=== PATIENT | female | born 1980 | race Caucasian/White ===

== ENCOUNTER 2017-08-13 16:58 | Emergency (ER) | payer OTHER ==
[2017-08-13 17:48] LABS: BASO # 0.1 K/uL (0.0-0.2); BASO % 0.8 % (0.0-2.0); HEMOGLOBIN 15.2 g/dL (11.0-16.0); LYMPH # 2.3 K/uL (1.0-4.3); LYMPH % 15.1 % (20.0-40.0); MEAN CELL VOLUME 96.2 fL (81.0-99.0); MEAN CORPUSCULAR HEMOGLOBIN 32.4 pg (27.0-31.0); MEAN CORPUSCULAR HGB CONC 33.7 g/dL (33.0-37.0); MEAN PLATELET VOLUME 8.4 fL (7.2-11.7); MONO # 1.5 K/uL (0.0-0.8); MONO % 9.5 % (0.0-10.0); NEUT # 11.6 K/uL (1.8-7.0); NEUT % 74.6 % (50.0-75.0); RBC 4.7 Mil/uL (3.80-5.20); RED CELL DISTRIBUTION WIDTH 13.8 % (11.5-14.5); WHITE BLOOD COUNT 15.5 K/uL (4.8-10.8)
[2017-08-13 17:54] LABS: HCG,QUALITATIVE URINE NEGATIVE (NEGATIVE)
--- NOTE | 2017-08-13 17:57 | C.PDOC ---
36-year-old female, presents to the emergency department with complaints of urinary urgency, and dysuria over the past few days. Patient states she is currently taking Amoxicillin and Methylprednisone for bronchitis. She denies any nausea/vomiting, vaginal bleeding, discharge, back pain or any other associated symptoms. No other complaints at this time. (Shonda Pena) History Per: Patient History/Exam Limitations: no limitations Onset/Duration Of Symptoms: Days Current Symptoms Are (Timing): Still Present Severity: Moderate <JeanShonda L - Last Filed: 08/13/17 18:46> <MichelleChristopher - Last Filed: 08/14/17 13:56> Time Seen by Provider: 08/13/17 17:17 Chief Complaint (Nursing): Abdominal Pain Past Medical History Reviewed: Historical Data, Nursing Documentation, Vital Signs - Medical History PMH: Asthma Surgical History: Tonsillectomy Family History: States: No Known Family Hx - Social History Hx Tobacco Use: Yes Hx Alcohol Use: No Hx Substance Use: No - Immunization History Hx Tetanus Toxoid Vaccination: No Hx Influenza Vaccination: No Hx Pneumococcal Vaccination: No <JeanShonda L - Last Filed: 08/13/17 18:46> Vital Signs: Last Vital Signs Temp 98 F 08/13/17 19:00 Pulse 67 08/13/17 19:00 Resp 19 08/13/17 19:00 BP 126/78 08/13/17 19:00 Pulse Ox 98 08/13/17 19:00 Review Of Systems Constitutional: Negative for: Fever, Chills Cardiovascular: Negative for: Chest Pain Respiratory: Positive for: Cough. Negative for: Shortness of Breath, Sputum Gastrointestinal: Positive for: Abdominal Pain. Negative for: Nausea, Vomiting Genitourinary: Positive for: Dysuria, Frequency. Negative for: Hematuria, Vaginal Discharge, Vaginal Bleeding Musculoskeletal: Negative for: Back Pain Skin: Negative for: Rash Neurological: Negative for: Weakness, Headache, Dizziness <JeanShonda L - Last Filed: 08/13/17 18:46> Physical Exam - Physical Exam Appears: Non-toxic, No Acute Distress Skin: Normal Color, Warm, Dry, No Rash Head: Atraumatic, Normacephalic Eye(s): bilateral: Normal Inspection, PERRL, Eyelid Inflammation Nose: Normal Oral Mucosa: Moist Lips: Normal Appearing Neck: Normal ROM Chest: Symmetrical Cardiovascular: Rhythm Regular, No Murmur Respiratory: Normal Breath Sounds, No Accessory Muscle Use Gastrointestinal/Abdominal: Bowel Sounds, Soft, No Tenderness, No Distention, No Guarding, No Rebound, No Hernia Extremity: Normal ROM, No Deformity, No Swelling Neurological/Psych: Oriented x3, Normal Speech Gait: Steady <Shonda Pena - Last Filed: 08/13/17 18:46> ED Course And Treatment - Laboratory Results Result Diagrams: 08/13/17 17:41 08/13/17 17:41 O2 Sat by Pulse Oximetry: 97 (RA) Pulse Ox Interpretation: Normal <Shonda Pena - Last Filed: 08/13/17 18:46> - Laboratory Results Result Diagrams: 08/13/17 17:41 08/13/17 17:41 <Christopher Martinez - Last Filed: 08/14/17 13:56> Medical Decision Making <Shonda Pena - Last Filed: 08/13/17 18:46> <Christopher Martinez Last Filed: 08/14/17 13:56> Medical Decision Making: Impression: Dysuria Plan: * Bloodwork * Pepcid * UA/HCG Progress: Labs reviewed. WBC slightly elevated likely from prednisone. UA shows UTI. Ordered culture and Bactrim PO On re-evaluation patient was resting comfortably on stretcher. She reports no severe abdominal pain. Abdomen remained soft, non-distended non-tender without guarding. She has no fever or CVA tenderness, vital sign stable. Patient given follow up instructions and Rx. Instructed to return to ER if symptoms worsen or new symptoms arise. (Shonda Pena) Disposition Counseled Patient/Family Regarding: Studies Performed, Diagnosis, Need For Followup, Rx Given - Disposition Disposition Time: 17:55 - POA Present On Arrival: None <Shonda Pena - Last Filed: 08/13/17 18:46> <Christopher Martinez Last Filed: 08/14/17 13:56> - Disposition Disposition: HOME/ ROUTINE Condition: GOOD Additional Instructions: Rx sent to [facility] Urine shows infection Take antibiotic twice daily and be sure to finish taking all of antibiotic. Drink plenty of fluids. Follow up with your primary medical doctor or clinic in 2-5 days for further evaluation. Prescriptions: Sulfamethoxazole/Trimethoprim [Bactrim DS 800 mg-160 mg] 1 tab PO BID #10 tab Instructions: Urinary Tract Infection, Child (DC) Forms: [employer] ([place]) - Clinical Impression Clinical Impression: UTI (urinary tract infection) - Scribe Statement The provider has reviewed the documentation as recorded by the Scribe (Zulema Lam) <Shonda Pena - Last Filed: 08/13/17 18:46> - PA / FLOWER MACHINE OPERATOR / Resident Statement MD/ has reviewed & agrees with the documentation as recorded. <Christopher Martinez - Last Filed: 08/14/17 13:56> - Scribe Statement All medical record entries made by the Scribe were at my direction and personally dictated by me. I have reviewed the chart and agree that the record accurately reflects my personal performance of the history, physical exam, medical decision making, and the department course for this patient. I have also personally directed, reviewed, and agree with the discharge instructions and disposition. (Shonda Pena)
[2017-08-13 17:58] LABS: ALB/GLOB RATIO 1.2 (1.0-2.1); ALBUMIN 4.4 g/dL (3.5-5.0); ALT/SGPT 13 U/L (9-52); AST/SGOT 20 U/L (14-36); BLOOD UREA NITROGEN 6 mg/dL (7-17); CALCIUM 9.3 mg/dl (8.6-10.4); GFR AFRICAN-AMERICAN > 60; GFR NON-AFRICAN AMERICAN > 60; LIPASE 33 U/L (23-300)
[2017-08-13 18:01] LABS: SQUAMOUS EPITHIAL 9 /hpf (0-5); URINE BACTERIA MOD (<OCC); URINE BILIRUBIN NEGATIVE (NEGATIVE); URINE BLOOD 3+ (NEGATIVE); URINE CLARITY SLIGHT-CLOUDY (Clear); URINE COLOR YELLOW (YELLOW); URINE GLUCOSE (UA) NORMAL (Normal); URINE LEUKOCYTE ESTERASE 3+ Leu/uL (Negative); URINE PROTEIN 2+ mg/dL (NEGATIVE); URINE UROBILINOGEN NORMAL mg/dL (0.2-1.0); WBC CLUMPS MANY /hpf
[2017-08-13] MEDS ORDERED: Tmp-Smz 800 mg-160 mg DS Tab PO STA (18:07)
[2017-08-13] MEDS ORDERED: Tmp-Smz 800 mg-160 mg DS Tab ONE (18:50)
[2017-08-13 19:01] VITALS: BP 126/78; PULSE 67; RESP 19; TEMP 98; O2SAT 98
== END 2017-08-13 19:00 | disposition home or self-care (01) ==
LOC: C.ER 16:58
DX: N39.0 Urinary tract infection, site not specified (principal)

== ENCOUNTER 2017-08-14 18:45 | Emergency (ER) | payer OTHER ==
[2017-08-14] MEDS ORDERED: Sodium Chloride 0.9% 1,000 ML IV ONE (20:02)
--- NOTE | 2017-08-14 20:03 | C.PDOC ---
History Of Present Illness 36 year old female presents to the ER with a complaint of fever and abdominal pain. Patient was seen in the ER yesterday and started on antibiotics, she was instructed to return if fever and symptoms persist. Patient is able to tolerate PO; denies nausea or vomiting. Time Seen by Provider: 08/14/17 20:01 Chief Complaint (Nursing): Fever History Per: Patient History/Exam Limitations: no limitations Onset/Duration Of Symptoms: Days Current Symptoms Are (Timing): Still Present Location Of Pain: Other (Abdomen) Sick Contacts (Context): None Associated Symptoms: Fever. denies: Nausea, Vomiting Ear Symptoms: Bilateral: None Severity: Moderate Pain Scale Rating Of: 4 Recent travel outside of the [place]: No Past Medical History Reviewed: Historical Data, Nursing Documentation, Vital Signs Vital Signs: Last Vital Signs Temp 102.9 F H 08/14/17 19:20 Pulse 104 H 08/14/17 19:20 Resp 16 08/14/17 19:20 BP 104/67 08/14/17 19:20 Pulse Ox 96 08/14/17 20:14 - Medical History PMH: Asthma Surgical History: Tonsillectomy Family History: States: No Known Family Hx - Social History Hx Tobacco Use: Yes Hx Alcohol Use: Yes Hx Substance Use: No - Immunization History Hx Tetanus Toxoid Vaccination: No Hx Influenza Vaccination: No Hx Pneumococcal Vaccination: No Review Of Systems Constitutional: Positive for: Fever Cardiovascular: Negative for: Chest Pain, Palpitations Respiratory: Negative for: Cough Gastrointestinal: Positive for: Abdominal Pain. Negative for: Nausea, Vomiting Physical Exam - Physical Exam Appears: Non-toxic Skin: Warm, Dry Head: Normacephalic Oral Mucosa: Moist Chest: Symmetrical, No Tenderness Cardiovascular: Rhythm Regular Respiratory: No Rales, No Rhonchi, No Wheezing Gastrointestinal/Abdominal: Soft, Tenderness (Mild suprapubic), No Guarding, No Rebound Neurological/Psych: Oriented x3 ED Course And Treatment - Laboratory Results Result Diagrams: 08/14/17 20:08 08/14/17 20:08 O2 Sat by Pulse Oximetry: 96 (Room air) Pulse Ox Interpretation: Normal Progress Note: Blood work and urinalysis ordered. Zosyn and IV fluids administered. Reevaluation Time: 21:31 Reassessment Condition: Improved Disposition Counseled Patient/Family Regarding: Studies Performed, Diagnosis, Need For Followup, Rx Given - Disposition Referrals: [facility] [Outside] [facility] [Outside] Disposition: HOME/ ROUTINE Disposition Time: 20:02 Condition: FAIR Additional Instructions: Please return if symptoms recur. Stop the bactrim Prescriptions: Nitrofurantoin Macrocrystals [Macrobid] 1 cap PO BID #14 cap Phenazopyridine [Pyridium] 200 mg PO TID #6 tab Instructions: Urinary Tract Infection, Adult (DC) Forms: [employer] ([place]) - Clinical Impression Clinical Impression: Fever, UTI (urinary tract infection) - Scribe Statement The provider has reviewed the documentation as recorded by the Scribe Forrest Burk All medical record entries made by the Scribe were at my direction and personally dictated by me. I have reviewed the chart and agree that the record accurately reflects my personal performance of the history, physical exam, medical decision making, and the department course for this patient. I have also personally directed, reviewed, and agree with the discharge instructions and disposition.
[2017-08-14] MEDS ORDERED: Piperacillin/Tazobact 3.375 gm 100 ML IVPB STA (20:09)
[2017-08-14 20:19] LABS: BASO # 0.1 K/uL (0.0-0.2); BASO % 0.6 % (0.0-2.0); HEMOGLOBIN 14.7 g/dL (11.0-16.0); LYMPH # 1.3 K/uL (1.0-4.3); LYMPH % 8.4 % (20.0-40.0); MEAN CELL VOLUME 95.5 fL (81.0-99.0); MEAN CORPUSCULAR HEMOGLOBIN 32.3 pg (27.0-31.0); MEAN CORPUSCULAR HGB CONC 33.8 g/dL (33.0-37.0); MEAN PLATELET VOLUME 8.5 fL (7.2-11.7); MONO # 1.7 K/uL (0.0-0.8); MONO % 10.6 % (0.0-10.0); NEUT # 12.7 K/uL (1.8-7.0); NEUT % 80.4 % (50.0-75.0); PLATELET COUNT 186 K/uL (130-400); RBC 4.54 Mil/uL (3.80-5.20); RED CELL DISTRIBUTION WIDTH 13.7 % (11.5-14.5); WHITE BLOOD COUNT 15.8 K/uL (4.8-10.8)
[2017-08-14] MEDS ORDERED: Piperacillin/Tazobact 3.375 gm 100 ML IVPB ONE (20:23)
[2017-08-14 20:25] LABS: VENOUS BLOOD GAS PCO2 32 mmHg (40-60); VENOUS BLOOD GAS PO2 43 mm/Hg (30-55); VENOUS BLOOD PH 7.45 (7.32-7.43)
[2017-08-14 20:27] LABS: SQUAMOUS EPITHIAL 9 /hpf (0-5); URINE BACTERIA OCC (<OCC); URINE BILIRUBIN NEGATIVE (NEGATIVE); URINE BLOOD 3+ (NEGATIVE); URINE CLARITY Hazy (Clear); URINE GLUCOSE (UA) NORMAL (Normal); URINE LEUKOCYTE ESTERASE 3+ Leu/uL (Negative); URINE PROTEIN 2+ mg/dL (NEGATIVE)
[2017-08-14 20:29] LABS: ALB/GLOB RATIO 1.2 (1.0-2.1); ALBUMIN 4.3 g/dL (3.5-5.0); ALT/SGPT 25 U/L (9-52); AST/SGOT 24 U/L (14-36); BLOOD UREA NITROGEN 7 mg/dL (7-17); GFR AFRICAN-AMERICAN > 60; GFR NON-AFRICAN AMERICAN > 60; LIPASE 39 U/L (23-300)
[2017-08-14 20:33] LABS: URINE COLOR YELLOW (YELLOW)
[2017-08-14 21:08] LABS: BANDS 1 % (0-2); BASOPHIL 1 % (0-2); LYMPHOCYTE 7 % (20-40); MONOCYTE 9 % (0-10); MYELOCYTE 1 % (0-0); NEUTROPHIL 81 % (50-75); PLATELET ESTIMATE NORMAL (NORMAL); TOTAL CELLS COUNTED 100
[2017-08-14 21:47] VITALS: BP 110/69; PULSE 99; RESP 20; TEMP 98.4; O2SAT 98
== END 2017-08-14 21:47 | disposition home or self-care (01) ==
LOC: C.ER 18:45
DX: N39.0 Urinary tract infection, site not specified (principal); R50.9 Fever, unspecified
CPT/HCPCS: 80053; 81001; 82803; 83690; 85025; 96365; 99285; J2543; J7030